=== PATIENT | female | born 1995 | race American Indian/Alaskan Native ===

== ENCOUNTER 2022-07-16 11:25 | Emergency (ER) | payer OTHER, MEDICAID ==
[2022-07-16] MEDS ORDERED: HYDROcodone/ACETAMINOPHEN 5-325 MG TAB PO NR (12:51)
[2022-07-16] MEDS ORDERED: CYCLOBENZAPRINE 10 MG TAB PO NR (12:52)
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
[2022-07-16 13:55] VITALS: BP 128/86
== END 2022-07-16 13:54 | disposition home or self-care (01) ==
LOC: ED 11:25
DX: M54.50 Low back pain, unspecified (principal); Z79.899 Other long term (current) drug therapy; V87.7XXA Person injured in collision between other specified motor vehicles (traffic), initial encounter; Y93.89 Activity, other specified; Y92.488 Other paved roadways as the place of occurrence of the external cause; Y99.8 Other external cause status
CPT/HCPCS: 99282